=== PATIENT | male | born 1985 | race Caucasian/White ===

== ENCOUNTER 2016-09-11 11:00 | Observation (INO) | payer OTHER ==
[2016-09-11 11:03] VITALS: BMI 39.1
[2016-09-11] MEDS ORDERED: SODIUM CHLORIDE 0.9% 1000 ML INFUS.BAG IV ONE (11:48)
[2016-09-11] MEDS ORDERED: morphine CARPU-JECT 2 MG/1 ML DISP.SYRIN IVPUSH ONE (11:48)
[2016-09-11] MEDS ORDERED: morphine CARPU-JECT 2 MG/1 ML DISP.SYRIN ONE (11:50)
[2016-09-11 12:14] LABS: URINE APPEARANCE CLEAR; URINE BILIRUBIN NEGATIVE (NEGATIVE); URINE BLOOD NEGATIVE (NEGATIVE); URINE COLOR YELLOW; URINE GLUCOSE (UA) NEGATIVE (NEGATIVE); URINE KETONE NEGATIVE (NEGATIVE); URINE LEUK ESTERASE NEGATIVE (NEGATIVE); URINE NITRITE NEGATIVE (NEGATIVE); URINE PROTEIN NEGATIVE (NEGATIVE); URINE UROBILINOGEN 2.0 E.U/dl E.U./dl (0.2-1.0)
[2016-09-11 12:40] LABS: BASOPHIL 0.5 % (0-2.0); EOSINOPHIL 1.9 % (0-4.5); MCH 29.4 pg (25.7-33.7); MCHC 33.7 g/dl (32.0-35.9); MEAN CELL VOLUME 87.2 fl (80-96); MEAN PLT VOLUME 9.2 fl (7.5-11.1); PLATELET COUNT 169 K/MM3 (134-434); RDW 13.7 % (11.9-15.9); WHITE BLOOD COUNT 5.9 K/mm3 (4.0-10.0)
[2016-09-11 12:55] LABS: ALBUMIN 4.1 g/dl (3.4-5.0); ANION GAP 8 (8-16); CALCIUM 8.8 mg/dL (8.5-10.1); CO2 26 mmol/L (21-32); GLUCOSE,RANDOM 88 mg/dL (74-106)
[2016-09-11 12:57] LABS: BILIRUBIN,TOTAL 0.4 mg/dL (0.2-1.0); SGOT/AST 32 U/L (15-37); SGPT/ALT 36 U/L (12-78); TOT PROT 7.4 g/dl (6.4-8.2)
[2016-09-11 12:58] LABS: ALK PHOS 89 U/L (45-117)
[2016-09-11] MEDS ORDERED: morphine CARPU-JECT 4 MG/1 ML DISP.SYRIN IVPUSH ONE (14:26)
[2016-09-11] MEDS ORDERED: morphine CARPU-JECT 4 MG/1 ML DISP.SYRIN ONE ×2 (14:34→21:51)
[2016-09-11] MEDS ORDERED: KETOROLAC TROMETHAMINE 30 MG/1 ML VIAL IVPUSH ONE (17:05)
--- NOTE | 2016-09-11 17:05 | PDOC ---
History of Present Illness - General History Source: Patient Exam Limitations: No Limitations - History of Present Illness Initial Comments: 09/11/16 17:05 Patient is a 30 year old male with no significant past medical history who presents to the ED with left testicle pain and left lower abdominal pain. Patient states that he had a hernia repair for unilateral inguinal hernia. Patient states that he was carrying bags to the 5th floor and had sharp pain in the surgery site feeling as if something ripped. He reports left testicular pain but denies any bulging. Patient reports diarrhea but denies any nausea or vomiting. He reports dysuria but denies any frequency, urgency or hematuria. He denies any fever or chills. Surgeon - Dr. Toscano <Alea Bolanos - Last Filed: 09/11/16 17:05> <Abril Harmon - Last Filed: 09/11/16 20:18> - General Chief Complaint: Pain Stated Complaint: LOWER PELVIC PAIN Time Seen by Provider: 09/11/16 11:36 Past History <Alea Bolanos - Last Filed: 09/11/16 17:05> - Past Medical History Anemia: No Asthma: No Cancer: No Cardiac Disorders: No CVA: No COPD: No CHF: No Dementia: No Diabetes: No GI Disorders: No Disorders: No HTN: Yes Hypercholesterolemia: No Liver Disease: No Seizures: No Thyroid Disease: No - Surgical History Abdominal Surgery: Yes (HERNIA) Appendectomy: No Cardiac Surgery: No Cholecystectomy: No Lung Surgery: No Neurologic Surgery: No Orthopedic Surgery: Yes (RIGHT HEEL SX) - Psycho/Social/Smoking Cessation Hx Suicidal Ideation: No Smoking History: Never smoked Have you smoked in the past 12 months: Yes Number of Cigarettes Smoked Daily: 6 'Breaking Loose' booklet given: 03/24/15 Hx Alcohol Use: No Drug/Substance Use Hx: No Substance Use Type: None Hx Substance Use Treatment: No <Abril Harmon - Last Filed: 09/11/16 20:18> - Past Medical History Allergies/Adverse Reactions: Allergies Allergy/AdvReac Type Severity Reaction Status Date / Time No Known Allergies Allergy Verified 09/11/16 11:03 Home Medications: Ambulatory Orders NK [No Known Home Medication] 09/11/16 Review of Systems - Review of Systems Able to Perform ROS?: Yes Comments:: 09/11/16 17:05 GENERAL/CONSTITUTIONAL: No fever or chills. No weakness. HEAD, EYES, EARS, NOSE AND THROAT: No change in vision. No ear pain or discharge. No sore throat. GASTROINTESTINAL: +diarrhea. No nausea, vomiting, or constipation. GENITOURINARY: +left testicular pain, left pelvic pain, dysuria. No frequency, or change in urination. CARDIOVASCULAR: No chest pain or shortness of breath. RESPIRATORY: No cough, wheezing, or hemoptysis. MUSCULOSKELETAL: No joint or muscle swelling or pain. No neck or back pain. SKIN: No rash NEUROLOGIC: No headache, vertigo, loss of consciousness, or change in strength/ sensation. ENDOCRINE: No increased thirst. No abnormal weight change. HEMATOLOGIC/LYMPHATIC: No anemia, easy bleeding, or history of blood clots. ALLERGIC/IMMUNOLOGIC: No hives or skin allergy. <Alea Bolanos - Last Filed: 09/11/16 17:05> *Physical Exam - Vital Signs Last Vital Signs Temp Pulse Resp BP Pulse Ox 98.2 F 60 20 128/62 99 09/11/16 14:22 09/11/16 14:22 09/11/16 14:22 09/11/16 14:22 09/11/16 14:22 - Physical Exam Comments: 09/11/16 17:06 GENERAL: Awake, alert, and fully oriented, in no acute distress HEAD: No signs of trauma EYES: PERRLA, EOMI, sclera anicteric, conjunctiva clear ENT: Auricles normal inspection, nares patent, Moist mucosa NECK: Normal ROM, supple, no lymphadenopathy, JVD, or masses LUNGS: Breath sounds equal, clear to auscultation bilaterally. No wheezes, and no crackles HEART: Regular rate and rhythm, normal S1 and S2, no murmurs, rubs or gallops ABDOMEN: Soft, nontender, normoactive bowel sounds. No guarding, no rebound. No masses PELVIC: (+)Left inguinal tenderness no pal bulging, +Left testicular tenderness no palpable hernia EXTREMITIES: Normal range of motion, no edema. No clubbing or cyanosis. No cords, erythema, or tenderness NEUROLOGICAL: Normal speech SKIN: Warm, Dry, normal turgor, no rashes or lesions noted. <Alea Bolanos - Last Filed: 09/11/16 17:05> - Vital Signs Last Vital Signs Temp Pulse Resp BP Pulse Ox 98.2 F 60 20 128/62 99 09/11/16 14:22 09/11/16 14:22 09/11/16 14:22 09/11/16 14:22 09/11/16 14:22 <Abril Harmon - Last Filed: 09/11/16 20:18> ED Treatment Course - LABORATORY CBC & Chemistry Diagram: 09/11/16 12:30 09/11/16 12:30 - ADDITIONAL ORDERS Additional order review: Laboratory Results 09/11/16 09/11/16 12:30 12:05 Sodium 140 Potassium 4.2 Chloride 106 Carbon Dioxide 26 Anion Gap 8 BUN 21 H Creatinine 1.0 Creat Clearance w eGFR > 60 Random Glucose 88 Calcium 8.8 Total Bilirubin 0.4 D AST 32 ALT 36 Alkaline Phosphatase 89 Total Protein 7.4 Albumin 4.1 Urine Color Yellow Urine Appearance Clear Urine pH 5.0 Ur Specific [place] 1.025 Urine Protein Negative Urine Glucose (UA) Negative Urine Ketones Negative Urine Blood Negative Urine Nitrite Negative Urine Bilirubin Negative Urine Urobilinogen 2.0 e.u/dl Ur Leukocyte Esterase Negative 09/11/16 12:30 RBC 4.74 MCV 87.2 MCHC 33.7 RDW 13.7 MPV 9.2 Neutrophils % 56.0 Lymphocytes % 24.0 Monocytes % 17.6 H D Eosinophils % 1.9 D Basophils % 0.5 - Medications Given in the ED: ED Medications Discontinued Medications Generic Name Dose Route Start Last Admin Trade Name Colinq PRN Reason Stop Dose Admin Morphine Sulfate 2 mg 09/11/16 11:48 09/11/16 12:20 Morphine Injection - IVPUSH 09/11/16 11:49 2 mg ONCE ONE Administration Morphine Sulfate 4 mg 09/11/16 14:26 09/11/16 14:32 Morphine Injection - IVPUSH 09/11/16 14:27 4 mg ONCE ONE Administration Sodium Chloride 1,000 ml 09/11/16 11:48 09/11/16 12:20 Normal Saline - IV 09/11/16 11:49 1,000 ml ONCE ONE Administration <Alea Bolanos - Last Filed: 09/11/16 17:05> - LABORATORY CBC & Chemistry Diagram: 09/11/16 12:30 09/11/16 12:30 - ADDITIONAL ORDERS Additional order review: Laboratory Results 09/11/16 09/11/16 12:30 12:05 Sodium 140 Potassium 4.2 Chloride 106 Carbon Dioxide 26 Anion Gap 8 BUN 21 H Creatinine 1.0 Creat Clearance w eGFR > 60 Random Glucose 88 Calcium 8.8 Total Bilirubin 0.4 D AST 32 ALT 36 Alkaline Phosphatase 89 Total Protein 7.4 Albumin 4.1 Urine Color Yellow Urine Appearance Clear Urine pH 5.0 Ur Specific [place] 1.025 Urine Protein Negative Urine Glucose (UA) Negative Urine Ketones Negative Urine Blood Negative Urine Nitrite Negative Urine Bilirubin Negative Urine Urobilinogen 2.0 e.u/dl Ur Leukocyte Esterase Negative 09/11/16 12:30 RBC 4.74 MCV 87.2 MCHC 33.7 RDW 13.7 MPV 9.2 Neutrophils % 56.0 Lymphocytes % 24.0 Monocytes % 17.6 H D Eosinophils % 1.9 D Basophils % 0.5 - RADIOLOGY Radiology Studies Ordered: Category Date Time Status ABDOMEN & PELVIS CT WITH CONTR [CT] Stat CT Scan 09/11/16 11:48 Completed SCROTUM AND CONTENTS US [US] Stat Ultrasound 09/11/16 16:59 Ordered - Medications Given in the ED: ED Medications Discontinued Medications Generic Name Dose Route Start Last Admin Trade Name Zoya PRN Reason Stop Dose Admin Morphine Sulfate 2 mg 09/11/16 11:48 09/11/16 12:20 Morphine Injection - IVPUSH 09/11/16 11:49 2 mg ONCE ONE Administration Morphine Sulfate 4 mg 09/11/16 14:26 09/11/16 14:32 Morphine Injection - IVPUSH 09/11/16 14:27 4 mg ONCE ONE Administration Sodium Chloride 1,000 ml 09/11/16 11:48 09/11/16 12:20 Normal Saline - IV 09/11/16 11:49 1,000 ml ONCE ONE Administration <Abril Harmon - Last Filed: 09/11/16 20:18> Medical Decision Making - Medical Decision Making 09/11/16 17:01 30 yo male with h/o left inguinal hernia repari 03/[address] Toscano here wtih c/o left lower quad testicular pain . no penile discharge. no concerns for st. no urinary complaints. no f/c no flank pain. no hematuria. no h/o renal colic. no n /v pain started yesterday after lifting heavy boxes up stairs. pain sharp. worse with movement, and straining. also c/o left testicular pain which he has had for long time. on exam awake alert lungs clear. heart RRR no mr/g. abd soft left lower quad ttp. hands parter palp hernia. skin warm and dry. exam left testicle no palp mass. ttp. no palp hernia, differential: partial incisioanl tear, henria, orchitis, uti epididymitis. plan ct a/p r/o hernia. possible scrotal us. pain control. 09/11/16 20:17 pt wtih decreased flow left testicle. per his story pt with alternating pain. possibl detorsion / torsion. d/w dr ramirez urology. will see pt. recommend nuclear of testicle. pt informed agreeable with admission. d/w hosp dr. calabrese , will admit to observation.l <Abril Harmon - Last Filed: 09/11/16 20:18> *DC/Admit/Observation/Transfer - Attestations Scribe Attestion: 09/11/16 17:06 Documentation prepared by KEIRA Cat, acting as back office medical assistant for Abril Harmon MD. <Alea Bolanos - Last Filed: 09/11/16 17:05> - Discharge Dispostion Admit: Yes <Abril Harmon - Last Filed: 09/11/16 20:18> Diagnosis at time of Disposition: Testicular pain, left - Referrals Referrals: Will Hathaway MD [Staff Physician] - - Patient Instructions Printed Discharge Instructions: Groin Hernia -- Adult Additional Instructions: take ibuprofen 600 mg every 8 hours as needed for pain. follow up with dr. Toscano , call to schedule. return for severe worsening symptoms , blood in urine vomiting or any concerns.
[2016-09-11] MEDS ORDERED: KETOROLAC TROMETHAMINE 30 MG/1 ML VIAL ONE (17:10)
--- NOTE | 2016-09-11 18:49 | PDOC ---
*Physical Exam - Vital Signs Last Vital Signs Temp Pulse Resp BP Pulse Ox 98.0 F 75 18 132/89 98 09/11/16 17:22 09/11/16 17:22 09/11/16 17:22 09/11/16 17:22 09/11/16 17:22 - Physical Exam Comments: 09/11/16 18:[address] Thurman radiology. Patient with decreased left testicular blood flow when compared to the right. Transmitted the information to Dr. Harmon. I have no clinical involvement with this case. ED Treatment Course - LABORATORY CBC & Chemistry Diagram: 09/11/16 12:30 09/11/16 12:30 - ADDITIONAL ORDERS Additional order review: Laboratory Results 09/11/16 09/11/16 12:30 12:05 Sodium 140 Potassium 4.2 Chloride 106 Carbon Dioxide 26 Anion Gap 8 BUN 21 H Creatinine 1.0 Creat Clearance w eGFR > 60 Random Glucose 88 Calcium 8.8 Total Bilirubin 0.4 D AST 32 ALT 36 Alkaline Phosphatase 89 Total Protein 7.4 Albumin 4.1 Urine Color Yellow Urine Appearance Clear Urine pH 5.0 Ur Specific [place] 1.025 Urine Protein Negative Urine Glucose (UA) Negative Urine Ketones Negative Urine Blood Negative Urine Nitrite Negative Urine Bilirubin Negative Urine Urobilinogen 2.0 e.u/dl Ur Leukocyte Esterase Negative 09/11/16 12:30 RBC 4.74 MCV 87.2 MCHC 33.7 RDW 13.7 MPV 9.2 Neutrophils % 56.0 Lymphocytes % 24.0 Monocytes % 17.6 H D Eosinophils % 1.9 D Basophils % 0.5 - Medications Given in the ED: ED Medications Discontinued Medications Generic Name Dose Route Start Last Admin Trade Name Colinq PRN Reason Stop Dose Admin Ketorolac Tromethamine 30 mg 09/11/16 17:05 09/11/16 17:09 Toradol Injection - IVPUSH 09/11/16 17:06 30 mg ONCE ONE Administration Morphine Sulfate 2 mg 09/11/16 11:48 09/11/16 12:20 Morphine Injection - IVPUSH 09/11/16 11:49 2 mg ONCE ONE Administration Morphine Sulfate 4 mg 09/11/16 14:26 09/11/16 14:32 Morphine Injection - IVPUSH 09/11/16 14:27 4 mg ONCE ONE Administration Sodium Chloride 1,000 ml 09/11/16 11:48 09/11/16 12:20 Normal Saline - IV 09/11/16 11:49 1,000 ml ONCE ONE Administration *DC/Admit/Observation/Transfer Diagnosis at time of Disposition: Testicular pain, left - Prescriptions Prescriptions: Ibuprofen 600 mg PO TID #90 tablet - Referrals Referrals: Will Hathaway MD [Staff Physician] - - Patient Instructions Printed Discharge Instructions: Groin Hernia -- Adult Additional Instructions: take ibuprofen 600 mg every 8 hours as needed for pain. follow up with dr. Toscano , call to schedule. return for severe worsening symptoms , blood in urine vomiting or any concerns. - Post Discharge Activity
[2016-09-11] MEDS ORDERED: ONDANSETRON 4 MG/2 ML VIAL IVPB PRN (21:37)
[2016-09-11] MEDS ORDERED: morphine CARPU-JECT 2 MG/1 ML DISP.SYRIN IVPUSH PRN (21:37)
[2016-09-11] MEDS: SODIUM CHLORIDE 1,000 ML IV SCH (22:13)
--- NOTE | 2016-09-11 22:15 | HP ---
CHIEF COMPLAINT: abdominal and testicular pain PCP: HISTORY OF PRESENT ILLNESS: This is a 30 year old male with a PMH of HTN, L inguinal hernia repair who presented to the ED with left lower abdominal and testicular pain. Pt states he was carrying heavy bags up 5 flights of stairs yesterday and suddenly felt a tearing sensation and was concerned that his mesh had possibly come displaced at his hernia repair site. Pt reports intermittent pain since then. He also reports decreased appetite. He denies dysuria today, but had some yesterday. Today he reports increased frequency of urination. Denies N/V. ER course was notable for: (1) CT without acute abdominal pathology, postsurgical changes left groin (2) Scrotal US: decreased flow left testicle when compared with right Recent Travel: pt denies PAST MEDICAL HISTORY: HTN PAST SURGICAL HISTORY: Left inguinal hernia repair March 2015 left heel ORIF Social History: Smoking: pt denies Alcohol: pt denies Drugs: marijuana use almost daily Family History: Mother age 42, ovarian CA; PMH asthma Father age 56, stomach/throat CA 4 brothers, 2 sisters all with HTN and asthma 5 children: 1 son with autism, 1 son with asthma Allergies No Known Allergies Allergy (Verified 09/11/16 11:03) HOME MEDICATIONS: 3 Medication Instructions Recorded NK [No Known Home Medication] 09/11/16 REVIEW OF SYSTEMS CONSTITUTIONAL: Absent: fever, chills, diaphoresis, generalized weakness, malaise, loss of appetite, weight change HEENT: Absent: rhinorrhea, nasal congestion, throat pain, throat swelling, difficulty swallowing, mouth swelling, ear pain, eye pain, visual changes CARDIOVASCULAR: Absent: chest pain, syncope, palpitations, irregular heart rate, lightheadedness , peripheral edema RESPIRATORY: Absent: cough, shortness of breath, dyspnea with exertion, orthopnea, wheezing, stridor, hemoptysis GASTROINTESTINAL: Present: abdominal pain Absent: abdominal distension, nausea, vomiting, diarrhea, constipation, melena, hematochezia GENITOURINARY: Present: dysuria, frequency Absent: urgency, hesitancy, hematuria, flank pain, genital pain MUSCULOSKELETAL: Absent: myalgia, arthralgia, joint swelling, back pain, neck pain SKIN: Absent: rash, itching, pallor HEMATOLOGIC/IMMUNOLOGIC: Absent: easy bleeding, easy bruising, lymphadenopathy, frequent infections ENDOCRINE: Absent: unexplained weight gain, unexplained weight loss, heat intolerance, cold intolerance NEUROLOGIC: Absent: headache, focal weakness or paresthesias, dizziness, unsteady gait, seizure, mental status changes, bladder or bowel incontinence PSYCHIATRIC: Absent: anxiety, depression, suicidal or homicidal ideation, hallucinations. PHYSICAL EXAMINATION Vital Signs - 24 hr 3 09/11/16 09/11/16 09/11/16 11:01 14:22 17:22 Temperature 98.4 F 98.2 F 98.0 F Pulse Rate 84 Pulse Rate [ 60 75 Right Radial] Respiratory 20 20 18 Rate Blood Pressure 155/84 Blood Pressure 128/62 132/89 [Right Arm] O2 Sat by Pulse 96 99 98 Oximetry (%) GENERAL: Awake, alert, and fully oriented, in no acute distress. HEAD: Normal with no signs of trauma. EYES: Pupils equal, round and reactive to light, extraocular movements intact, sclera anicteric, conjunctiva clear. No lid lag. EARS, NOSE, THROAT: Ears normal, nares patent, oropharynx clear without exudates. Moist mucous membranes. NECK: Normal range of motion, supple without lymphadenopathy, JVD, or masses. LUNGS: Breath sounds equal, clear to auscultation bilaterally. No wheezes, and no crackles. No accessory muscle use. HEART: Regular rate and rhythm, normal S1 and S2 without murmur, rub or gallop. ABDOMEN: Soft, not distended, normoactive bowel sounds, no guarding, no rebound , no masses. No hepatomegaly or splenomegaly. + pain on palpation right suprapubic area, no obvious mass or hernia, left testicle lying elevated compared with right, pt reports this has been for about 1.5 years. + pain on palpation of left testicle, no obvious mass, no hernia noted MUSCULOSKELETAL: Normal range of motion at all joints. No bony deformities or tenderness. No CVA tenderness. UPPER EXTREMITIES: 2+ pulses, warm, well-perfused. No cyanosis. No clubbing. No peripheral edema. LOWER EXTREMITIES: 2+ pulses, warm, well-perfused. No calf tenderness. No peripheral edema. NEUROLOGICAL: Cranial nerves II-XII intact. Normal speech. Normal gait. PSYCHIATRIC: Cooperative. Good eye contact. Appropriate mood and affect. SKIN: Warm, dry, normal turgor, no rashes or lesions noted, normal capillary refill. Laboratory Results - last 24 hr 3 07/05/17 07/05/17 07/05/17 12:05 12:30 12:30 WBC 5.9 RBC 4.74 Hgb 14.0 Hct 41.4 MCV 87.2 MCHC 33.7 RDW 13.7 Plt Count 169 MPV 9.2 Neutrophils % 56.0 Lymphocytes % 24.0 Monocytes % 17.6 H D Eosinophils % 1.9 D Basophils % 0.5 Sodium 140 Potassium 4.2 Chloride 106 Carbon Dioxide 26 Anion Gap 8 BUN 21 H Creatinine 1.0 Creat Clearance w eGFR > 60 Random Glucose 88 Calcium 8.8 Total Bilirubin 0.4 D AST 32 ALT 36 Alkaline Phosphatase 89 Total Protein 7.4 Albumin 4.1 Urine Color Yellow Urine Appearance Clear Urine pH 5.0 Ur Specific [place] 1.025 Urine Protein Negative Urine Glucose (UA) Negative Urine Ketones Negative Urine Blood Negative Urine Nitrite Negative Urine Bilirubin Negative Urine Urobilinogen 2.0 e.u/dl Ur Leukocyte Esterase Negative CT/ABDOMEN PELVIS CT WITH CONTR ADDENDUM ADDENDUM #1 Addendum to report: Postsurgical changes are suspected in the region of the left groin, clinical correlation if there has been recent left inguinal herniorrhaphy. Region of surgical mesh noted to be intact on the sagittal reformations, there are residual postsurgical changes with some infiltration of the fat in the left groin region , no obvious fluid collection, recurrent hernia or hematoma seen. Sonogram correlation of the left groin including left anterior subcutaneous tissues and region of inguinal scrotal junction recommended. Small lymph nodes are seen in the left groin. There are no signs of diverticulitis or colitis in the left lower quadrant bowel with no fluid collections seen in the left lower quadrant of the abdomen. The changes seen are anterior and very superficial related to the region of left hernia repair and region of surgical mesh. Imaging findings reported by telephone to the emergency room staff caring for patient at 5:15 pm - follow-up sonogram is planned . ORIGINAL REPORT CT abdomen and pelvis with intravenous contrast CLINICAL HISTORY: Abdominal pain, epigastric, fever Comparison studies : February 18, 2015 Axial imaging completed with coronal and sagittal reformations after bolus injection 90 cc Omnipaque 350 with a power injector. Normal images through the lung bases with no infiltrate, nodule or effusion and no signs of pneumonia Normal visualization of the upper abdomen with mild hepatic steatosis and no focal lesions in the liver or spleen. Normal appearance of the region of gallbladder, bile ducts and pancreas. No infiltration of the fat in the mesentery or upper abdomen seen Normal region of stomach and duodenum. Mild prominence of the jejunum in the left upper quadrant with mild prominence of the vessels in the mesentery with no surrounding infiltration of the fat and limited assessment of the bowel lumen and wall without air and oral contrast in the lumen. Mild inflammation in the left upper quadrant jejunum is not excluded, clinical correlation. Similar imaging appearance was seen on prior CT scan February 18, 2015, no new changes are seen. Normal visualization of the arterial supply to the bowel in the left upper quadrant with normal visualization of the superior mesenteric vein and venous collaterals with no signs of mesenteric vein thrombosis. Normal visualization of the large bowel with no signs of diverticulitis or colitis Normal appendix with no signs of appendicitis Normal aorta with no enlarged para -aortic or retroperitoneal adenopathy IMPRESSION: CT imaging completed with no free air or free fluid and no signs of bowel obstruction or hernia No CT evidence of appendicitis, no CT evidence of diverticulitis or colitis Normal visualization of the large bowel No suspicious findings in the region of the esophagogastric junction, no hiatal hernia, normal visualization of the stomach and region of duodenum including pancreas, gallbladder and bile ducts Prominence of the left upper quadrant jejunum and mesentery-this appearance however is similar to the last CT scan from February 18, 2015. No signs of mesenteric vein thrombosis with normal enhancement of the arterial supply to the bowel, no obvious bowel wall thickening or mesenteric infiltration in the region, clinical correlation. If clinically symptomatic consider follow-up imaging with oral contrast to opacify the small bowel lumen in the left upper quadrant . Reported By: Jose Davidson MD 09/11/16 1732 US/SCROTUM AND CONTENTS US Left testicular pain. Rule out torsion. Scrotal ultrasound. Compared to prior scrotal ultrasound dated 02/18/2015 The right testicle measures 4.9 x 2.4 cm with a homogeneous echotexture and normal vascular flow. Right epididymal head, body and tail measure 8, 6 and 6 mm, respectively. Left testicle measures 4.4 x 2.5 cm with homogeneous echotexture. There is decreased flow in the left testicle on the color Doppler images relative to the right. However, arterial flow was documented on the duplex images. Left epididymal head , body and tail measure 1.2, 0.6 and 0.5 cm, respectively. A small left and tiny right hydrocele are present. There is no gross evidence of a varicocele Impression Vascular flow was documented in the left testicle. However, there is decreased flow in the left testicle when compared to the right on the color Doppler images. Rule out intermittent torsion. Urology consult is recommended. Small left and tiny right hydrocele are present. Case discussed with Dr. Gomez, emergency room attending physician. Reported By: Syl Bolanos MD 09/11/16 [id number] ASSESSMENT/PLAN: 30yM presented to the ED with LLQ and left testicular pain. He is being admitted for observation. abdominal/groin pain - possibility of intermittent torsion cannot be ruled out - Urology consult pending, ED MD spoke with Dr. Yao who recommended NM study, same ordered - Surgical consult ordered - NPO in case of OR - NS @ 75cc/h while NPO HTN - On no home medications as per pt - initially BP elevated. now improved. Will cont to monitor and initiate meds if persistently elevated. DVT PPX - low risk. Pt is fully ambulatory. Cont ambulation FEN - NS @ 75cc/hr - BMP in am - NPO for now Dispo: Pt currently requires inpatient monitoring. Expected LOS <48h Visit type - Emergency Visit Emergency Visit: Yes ED Registration Date: 09/11/16 Care time: The patient presented to the Emergency Department on the above date and was hospitalized for further evaluation of their emergent condition. - New Patient This patient is new to me today: Yes Date on this admission: 09/11/16 - Critical Care Critical Care patient: No
[2016-09-12] MEDS ORDERED: morphine CARPU-JECT 2 MG/1 ML DISP.SYRIN IVPUSH ONE
[2016-09-12 06:51] LABS: BASOPHIL 0.6 % (0-2.0); EOSINOPHIL 2.8 % (0-4.5); MCH 29.5 pg (25.7-33.7); MCHC 33.4 g/dl (32.0-35.9); MEAN CELL VOLUME 88.1 fl (80-96); MEAN PLT VOLUME 9.6 fl (7.5-11.1); NEUTROPHILS 50.5 % (42.8-82.8); PLATELET COUNT 168 K/MM3 (134-434); RDW 13.7 % (11.9-15.9); WHITE BLOOD COUNT 6.3 K/mm3 (4.0-10.0)
[2016-09-12 07:29] LABS: ANION GAP 5 (8-16); CALCIUM 8.9 mg/dL (8.5-10.1); CO2 30 mmol/L (21-32); GLUCOSE,RANDOM 82 mg/dL (74-106); MAGNESIUM 2.3 mg/dL (1.8-2.4); PHOSPHOROUS 3.2 mg/dL (2.5-4.9)
--- NOTE | 2016-09-12 08:54 | CONSULT ---
Consult Consult Specialty:: Surgery Reason for Consultation:: Left groin/testicular pain - History of Present Illness Chief Complaint: Left groin/testicular pain History of Present Illness: 30 male presents for left groin/testicular pain after lifting several heavy objects No nausea/vomiting No fevers/chills History of left inguinal hernia repair in the past - History Source History Provided By: Patient, Medical Record Limitations to Obtaining History: No Limitations - Past Medical History Musculoskeletal: Yes: Other (pain on ambulation occasionally on right lateral ankle from previous injury). No: Bursitis - Past Surgical History Additional Surgical History: Robotic left inguinal hernia with mesh - Alcohol/Substance Use Hx Alcohol Use: No History of Substance Use: reports: Marijuana (current every day smoker of marijuana. last time smoked was 6 am this morning.) - Smoking History Smoking history: Never smoked Have you smoked in the past 12 months: Yes Aproximately how many cigarettes per day: 6 - Social History ADL: Independent History of Recent Travel: No Home Medications - Allergies Allergies/Adverse Reactions: Allergies Allergy/AdvReac Type Severity Reaction Status Date / Time No Known Allergies Allergy Verified 09/11/16 11:03 - Home Medications Home Medications: Ambulatory Orders NK [No Known Home Medication] 09/11/16 Family Disease History - Family Disease History Family History: Denies Review of Systems - Review of Systems Constitutional: denies: Chills, Fever Eyes: reports: No Symptoms HENT: reports: No Symptoms Neck: reports: No Symptoms Cardiovascular: denies: Chest Pain Respiratory: denies: Cough Gastrointestinal: reports: Other (Left groin pain) Neurological: denies: Change in LOC Pain Intensity: 3 Physical Exam Vital Signs: Vital Signs Temperature 98.2 F 09/12/16 05:50 Pulse Rate 56 L 09/12/16 05:50 Respiratory Rate 18 09/12/16 05:50 Blood Pressure 155/96 09/12/16 05:50 O2 Sat by Pulse Oximetry (%) 98 09/12/16 05:40 Constitutional: Yes: Calm Eyes: Yes: WNL HENT: Yes: WNL Neck: Yes: Supple Cardiovascular: Yes: Regular Rate and Rhythm Respiratory: Yes: CTA Bilaterally Gastrointestinal: Yes: Soft, Other (Minimal left groin/testicular pain). No: Tenderness, Tenderness, Rebound Extremities: Yes: WNL Neurological: Yes: Alert, Oriented Labs: CBC, BMP 09/12/16 05:50 07/06/17 05:50 Imaging - Results Cat Scan: Report Reviewed, Image Reviewed Ultrasound: Report Reviewed, Image Reviewed Problem List - Problems (1) Testicular pain, left Code(s): N50.812 - LEFT TESTICULAR PAIN Assessment/Plan 30 male with left groin/testicular pain No hernia on CT or physical exam Low flow to left testicle Urology consult No general surgical intervention needed at this time
--- NOTE | 2016-09-12 12:19 | CON.GU ---
Consult Consult Specialty:: Referred by:: medicine Reason for Consultation:: left testicular pain - History of Present Illness Chief Complaint: left testicular pain History of Present Illness: 30 year old male who presents with 3 days of left testicular pain and groin pain with heavy lifting. Also having some associated urinary frequency. US showed flow to both testes. He is S/P L inguinal hernia repair. - History Source History Provided By: Patient, Medical Record Limitations to Obtaining History: No Limitations - Past Medical History Gastrointestinal: Yes: Other (inguinal hernia repair) Renal/: No: Renal Failure, Renal Inusuff, BPH, Cancer, Hematuria, Hemodialysis , Neurogenic Bladder, Renal Calculi, UTI, Other Musculoskeletal: Yes: Other (pain on ambulation occasionally on right lateral ankle from previous injury). No: Bursitis - Past Surgical History Additional Surgical History: Robotic left inguinal hernia with mesh - Alcohol/Substance Use Hx Alcohol Use: No History of Substance Use: reports: Marijuana (current every day smoker of marijuana. last time smoked was 6 am this morning.) - Smoking History Smoking history: Never smoked Have you smoked in the past 12 months: Yes Aproximately how many cigarettes per day: 6 - Social History ADL: Independent History of Recent Travel: No Home Medications - Allergies Allergies/Adverse Reactions: Allergies Allergy/AdvReac Type Severity Reaction Status Date / Time No Known Allergies Allergy Verified 09/11/16 11:03 - Home Medications Home Medications: Ambulatory Orders NK [No Known Home Medication] 09/11/16 Review of Systems - Review of Systems Gastrointestinal: reports: Abdominal Pain Genitourinary: reports: Testicular Pain, Urgency. denies: Testicular Mass, Testicular Swelling Physical Exam- Vital Signs: Vital Signs Temperature 98.4 F 09/12/16 09:00 Pulse Rate 61 09/12/16 09:00 Respiratory Rate 18 09/12/16 09:00 Blood Pressure 139/78 09/12/16 09:00 O2 Sat by Pulse Oximetry (%) 98 09/12/16 05:40 Gastrointestinal: Yes: Soft Renal/: Yes: Other (left testicle is tender but not swollen. normal lie). No : Bladder Distention, CVA Tenderness - Left, CVA Tenderness - Right, Alberts Present Labs: CBC, BMP 09/12/16 05:50 09/12/16 05:50 Imaging - Results Ultrasound: Report Reviewed Problem List - Problems (1) Orchitis and epididymitis Assessment/Plan: antibiotics and NSAIDs and ice and elevation. History and physical inconsistent with acute testicular torsion. Nuclear scan has been done but not read. Called radiology twice this morning for the report. Code(s): N45.3 - EPIDIDYMO-ORCHITIS
[2016-09-12] MEDS ORDERED: IBUPROFEN 800 MG/8 ML IJ IVPB ONE ×2 (13:15→15:45)
--- NOTE | 2016-09-12 13:15 | PN ---
Physical Exam: SUBJECTIVE: Patient seen and examined at the bedside. States pain is improving with morphine. OBJECTIVE: Vital Signs Period Temp Pulse Resp BP Sys/Cole Pulse Ox Last 24 Hr 98.2 F-98.4 F 56-61 18-18 134-155/58-96 98 GENERAL: The patient is awake, alert, and fully oriented, in no acute distress. HEAD: Normal with no signs of trauma. EYES: PERRL, extraocular movements intact, sclera anicteric, conjunctiva clear. No ptosis. ENT: Ears normal, nares patent, oropharynx clear without exudates, moist mucous membranes. NECK: Trachea midline, full range of motion, supple. LUNGS: Breath sounds equal, clear to auscultation bilaterally, no wheezing HEART: Regular rate and rhythm ABDOMEN: Soft, nontender, nondistended, normoactive bowel sounds, no guarding, no rebound, no hepatosplenomegaly, no masses. +left testicular pain, no edema noted EXTREMITIES: 2+ pulses, warm, well-perfused, no edema. NEUROLOGICAL: Normal speech, gait not observed. PSYCH: Normal mood, normal affect. SKIN: Warm, dry, normal turgor, no rashes or lesions noted Laboratory Results - last 24 hr 09/12/16 09/12/16 05:50 05:50 WBC 6.3 RBC 4.60 Hgb 13.6 Hct 40.6 MCV 88.1 MCHC 33.4 RDW 13.7 Plt Count 168 MPV 9.6 Neutrophils % 50.5 Lymphocytes % 35.7 D Monocytes % 10.4 H Eosinophils % 2.8 Basophils % 0.6 Sodium 141 Potassium 4.3 Chloride 106 Carbon Dioxide 30 Anion Gap 5 L BUN 19 H Creatinine 1.0 Random Glucose 82 Calcium 8.9 Phosphorus 3.2 Magnesium 2.3 Active Medications Generic Name Dose Route Start Last Admin Trade Name Freq PRN Reason Stop Dose Admin Ceftriaxone Sodium 1 gm 09/12/16 12:22 Rocephin - IM 09/12/16 12:23 ONCE ONE Sodium Chloride 1,000 mls @ 75 mls/hr 09/11/16 21:45 09/11/16 22:13 Normal Saline - IV 75 mls/hr ASDIR CARINA Administration Ibuprofen 800 mg 09/12/16 13:15 Caldolor Injection - IVPB 09/12/16 13:16 ONCE ONE Morphine Sulfate 4 mg 09/11/16 21:37 09/11/16 22:10 Morphine Injection - IVPUSH 4 mg Q4H PRN Administration PAIN Ondansetron HCl 4 mg 09/11/16 21:37 Zofran Injection IVPB Q6H PRN NAUSEA ASSESSMENT/PLAN: Patient is a 30 year old male with a past medical history of left inguinal hernia repair. He presented to the ED o n 09/11/2016 with 3 days of left testicular and groin pain with heavy lifting. He also reports s associated urinary frequency. US showed flow to both testes. He is S/P L inguinal hernia repair. Imaging: Scrotal Ultrasound shows decrease in left testicle when compared to the right, rule out intermitent torsion, small left and tiny right hydrocele : Left testicular and groin pain - improving Assessment/Plan: Scrotal u/s shows decrease in left testicle, rule out intermittent torsion Surgery evaluated, no surgical interventions at this time Awaiting Scrotal NM study Ceftriaxone 1gram x 1 WBC stable, vitals stable, remains afebrile Urology following Morphine as needed for pain, Ibuprofen 800mg Continue fluid hydration Monitor intake and output F.E.N. Fluids: NS @ 75cc/hr Electrolytes: monitor Nutrition: Regular Prophylaxis: DVT: young ambulatory patient GI: PrashantanMary Ann Visit type - Emergency Visit Emergency Visit: Yes ED Registration Date: 09/11/16 Care time: The patient presented to the Emergency Department on the above date and was hospitalized for further evaluation of their emergent condition. - New Patient This patient is new to me today: Yes Date on this admission: 09/12/16 - Critical Care Critical Care patient: No - Discharge Referral Referred to [facility] Med P.C.: No
[2016-09-12] MEDS ORDERED: DOCUSATE SODIUM 100 MG CAPSULE (FP) PO PRN (15:09)
[2016-09-12] MEDS ORDERED: cefTRIAXone SODIUM 1 GM VIAL IM ONE (15:10)
[2016-09-12] MEDS ORDERED: cefTRIAXone 1 GM/50 ML BAG (PRE-DOCKED) IVPB ONE (15:30)
[2016-09-12] MEDS ORDERED: cefTRIAXone SODIUM 1 GM VIAL IVPB ONE (15:30)
[2016-09-12] MEDS: SODIUM CHLORIDE 1,000 ML IV SCH (15:52)
[2016-09-13 06:49] LABS: BASOPHIL 0.5 % (0-2.0); EOSINOPHIL 1.5 % (0-4.5); MCH 29.2 pg (25.7-33.7); MCHC 33.6 g/dl (32.0-35.9); MEAN CELL VOLUME 86.8 fl (80-96); MEAN PLT VOLUME 9.6 fl (7.5-11.1); NEUTROPHILS 68.8 % (42.8-82.8); PLATELET COUNT 174 K/MM3 (134-434); RDW 13.4 % (11.9-15.9); WHITE BLOOD COUNT 7.3 K/mm3 (4.0-10.0)
[2016-09-13 07:20] LABS: ALBUMIN 3.6 g/dl (3.4-5.0); ALK PHOS 81 U/L (45-117); ANION GAP 9 (8-16); BILIRUBIN,TOTAL 0.5 mg/dL (0.2-1.0); CALCIUM 8.5 mg/dL (8.5-10.1); CO2 25 mmol/L (21-32); CREATININE 0.9 mg/dL (0.7-1.3); GLUCOSE,RANDOM 91 mg/dL (74-106); SGOT/AST 54 U/L (15-37); SGPT/ALT 113 U/L (12-78); TOT PROT 6.8 g/dl (6.4-8.2)
[2016-09-13 10:56] VITALS: BP 137/68; PULSE 64; TEMP 98.2
--- NOTE | 2016-09-13 11:55 | DS ---
Physical Exam: SUBJECTIVE: Patient seen and examined. Patient denies left testicular pain, states some soreness but pain is improved. OBJECTIVE: Cipro 500mg BID x 7 days and to follow up with Urologist outpatient. Vital Signs Period Temp Pulse Resp BP Sys/Cole Pulse Ox Last 24 Hr 98.2 F-98.5 F 62-66 12-20 128-137/64-68 98-98 PHYSICAL EXAM GENERAL: The patient is awake, alert, and fully oriented, in no acute distress. HEAD: Normal with no signs of trauma. EYES: PERRL, extraocular movements intact, sclera anicteric, conjunctiva clear. No ptosis. ENT: Ears normal, nares patent, oropharynx clear without exudates, moist mucous membranes. NECK: Trachea midline, full range of motion, supple. LUNGS: Breath sounds equal, clear to auscultation bilaterally, no wheezing HEART: Regular rate and rhythm ABDOMEN: Soft, nontender, nondistended, normoactive bowel sounds, no guarding, no rebound, no hepatosplenomegaly, no masses. +left testicular soreness - but improving, pt states he is sore, denies pain, no edema noted EXTREMITIES: 2+ pulses, warm, well-perfused, no edema. NEUROLOGICAL: Normal speech, gait not observed. PSYCH: Normal mood, normal affect. SKIN: Warm, dry, normal turgor, no rashes or lesions noted LABS Laboratory Results - last 24 hr 09/13/16 09/13/16 06:00 06:00 WBC 7.3 RBC 4.69 Hgb 13.7 Hct 40.8 MCV 86.8 MCHC 33.6 RDW 13.4 Plt Count 174 MPV 9.6 Neutrophils % 68.8 D Lymphocytes % 22.3 D Monocytes % 6.9 Eosinophils % 1.5 Basophils % 0.5 Sodium 140 Potassium 4.3 Chloride 106 Carbon Dioxide 25 Anion Gap 9 BUN 20 H Creatinine 0.9 Creat Clearance w eGFR > 60 Random Glucose 91 Calcium 8.5 Total Bilirubin 0.5 D AST 54 H D ALT 113 H D Alkaline Phosphatase 81 Total Protein 6.8 Albumin 3.6 HOSPITAL COURSE: Date of Admission:09/12/16 Date of Discharge: 09/13/16 ASSESSMENT/PLAN: Patient is a 30 year old male with a past medical history of left inguinal hernia repair. He presented to the ED o n 09/11/2016 with 3 days of left testicular and groin pain with heavy lifting. He also reports s associated urinary frequency. US showed flow to both testes. He is S/P L inguinal hernia repair. Imaging: Scrotal Ultrasound shows decrease in left testicle when compared to the right, rule out intermitent torsion, small left and tiny right hydrocele NM/Scan testicular 09/12/2016: no scintigraphic evidence of testicular torsion : Left testicular and groin pain - improved Assessment/Plan: Scrotal u/s shows decrease in left testicle, rule out intermittent torsion NM testicular scan shows no scintigraphic evidence of testicular torsion Patient denies left testicular pain on exam, verbalizes "soreness" Surgery evaluated, no surgical interventions at this time Discharge on Cipro 500mg BID x 7 days WBC stable, vitals stable, remains afebrile Urology follow up as an outpatient NSAIDs PRN, elevate and ice left testicle recommended by urologist Disposition: Discharge home with urology follow up. Minutes to complete discharge: 45 Discharge Summary Reason For Visit: PAIN IN LEFT TESTICLE Current Active Problems Orchitis and epididymitis (Acute) Testicular pain, left (Acute) Condition: Improved - Instructions Diet, Activity, Other Instructions: Mr. Lin: take ibuprofen 600 mg every 8 hours as needed for pain. follow up with dr. Toscano , call to schedule. return for severe worsening symptoms , blood in urine vomiting or any concerns. Please follow up with the urologist within 1 week after discharge. Continue the Cipro 500mg twice daily as ordered. Referrals: Will Hathaway MD [Staff Physician] - Disposition: HOME - Home Medications Comprehensive Discharge Medication List: Ambulatory Orders Ciprofloxacin HCl [Cipro] 500 mg PO BID #14 tablet 09/13/16 This patient is new to me today: No Emergency Visit: Yes ED Registration Date: 09/12/16 Care time: The patient presented to the Emergency Department on the above date and was hospitalized for further evaluation of their emergent condition. Critical Care patient: No - Discharge Referral Referred to [facility] Med P.C.: No
== END 2016-09-13 12:41 | disposition home or self-care (01) ==
LOC: JER 11:00 → JERBED 20:18 → UNDOADMOB 20:18 → J6S 23:54 → JERBED 23:54 → INTOOBSV 09-12 18:38 → OBSVTOIN 09-12 18:38 → JERBED 09-13 12:07 → J6S 09-13 12:07
PROVIDERS: ADMIT Internal Medicine; ATTEND Nurse Practitioner Family
PROC: 3E03329 Introduction of Other Anti-infective into Peripheral Vein, Percutaneous Approach (ICD-10-PCS; principal; 2016-09-13)
PROC: 3E0333Z Introduction of Anti-inflammatory into Peripheral Vein, Percutaneous Approach (ICD-10-PCS; 2016-09-13)
PROC: 3E033NZ Introduction of Analgesics, Hypnotics, Sedatives into Peripheral Vein, Percutaneous Approach (ICD-10-PCS; 2016-09-13)
PROC: 3E0337Z Introduction of Electrolytic and Water Balance Substance into Peripheral Vein, Percutaneous Approach (ICD-10-PCS; 2016-09-13)
DX: N45.3 Epididymo-orchitis (principal); N50.812 Left testicular pain; I10 Essential (primary) hypertension; Z98.890 Other specified postprocedural states
CPT/HCPCS: 36415; 74177-TC; 76870-TC; 78761-TC; 80048; 80053; 81003; 83735; 84100; 85025; 99283-25; A9512; G0378

== ENCOUNTER 2021-12-10 16:08 | Emergency (ER) | payer OTHER ==
[2021-12-10 16:14] VITALS: BP 142/89; PULSE 73; RESP 18; TEMP 98.1; BMI 36.0
[2021-12-10] MEDS ORDERED: ACETAMINOPHEN 500 MG TABLET (FP) PO ONE (18:55)
[2021-12-10] MEDS ORDERED: ACETAMINOPHEN 500 MG TABLET (FP) ONE (19:03)
== END 2021-12-10 21:18 | disposition home or self-care (01) ==
LOC: JERFT 16:08 → JER 16:08 → JERFT 21:18
DX: N43.3 Hydrocele, unspecified (principal)
CPT/HCPCS: 76705-TC; 76870-TC; 99284-25